=== PATIENT | female | born 1960 | race Two or more races ===

== ENCOUNTER 2019-11-01 07:17 | Outpatient (CLI) | payer OTHER | END 2019-11-01 07:19 | disposition home or self-care (01) | LOC: SONOGRAMA 07:17 | DX: E04.1 Nontoxic single thyroid nodule (principal) ==

== ENCOUNTER 2022-01-14 08:27 | Outpatient (CLI) | payer OTHER | END 2022-01-14 08:29 | disposition home or self-care (01) | LOC: SONOGRAMA 08:27 | PROVIDERS: ATTEND Pathology Anatomic Pathology & Clinical Pathology | DX: E04.2 Nontoxic multinodular goiter (principal) ==